=== PATIENT | female | born 1930 | race Caucasian/White ===

== ENCOUNTER 2016-04-09 10:14 | Day surgery (SDC) | payer MEDICARE, BC ==
[2016-04-09] VITALS (15 sets, daily range): BP systolic 130–233; BP diastolic 59–117; PULSE 58–77; TEMP 98.4
[~2016-04-09] VITALS: Ht 166.4 cm; Wt 81.0 kg
[~2016-04-09 10:14] MED LIST: ARIMIDEX1 MG PO; LOPRESSOR 225 MG/TAB PO; PRINIVIL20 MG PO; ZOCOR 40MG40 MG PO
[2016-04-09 10:57] LABS: HEMATOCRIT 40.3 % (37.0-47.0); HEMOGLOBIN 12.7 g/dl (12.5-16.0); MEAN CELL VOLUME 87 fl (80.0-100.0); MEAN CORPUSCULAR HEMOGLOBIN 28 pg (27.0-31.0); MEAN CORPUSCULAR HGB CONC 32 g/dl (33.0-37.0); MEAN PLATELET VOLUME 9.9 fl (7.4-10.4); PLATELET COUNT 193 K/mm3 (130-400); RED BLOOD COUNT 4.61 M/mm3 (4.10-5.30); WHITE BLOOD COUNT 5.4 K/mm3 (4.8-10.8)
[2016-04-09 10:59] LABS: PROTHROMBIN TIME 11.2 SECONDS (9.7-12.8)
[2016-04-09 11:11] LABS: CALCIUM 9.7 mg/dL (8.4-10.2); CREATININE, serum 1.1 mg/dL (0.52-1.25); POTASSIUM 3.5 mmol/L (3.4-5.0)
[2016-04-09] MEDS ORDERED: VITAMIN D32000 I1 PO (11:29)
[2016-04-09] MEDS ORDERED: CALTRATE 600 +1 TAB PO (11:30)
[2016-04-09] MEDS ORDERED: MULTIVITAMIN SEN PO (11:30)
[2016-04-09] MEDS ORDERED: ASPI325T6 PO (11:30)
[2016-04-09] MEDS ORDERED: FISH OIL1000 MG PO (11:31)
[2016-04-09] MEDS ORDERED: GINGER500 MG PO (11:31)
[2016-04-09] MEDS ORDERED: MAGNESIUM250 M1 PO (11:33)
[2016-04-09] MEDS ORDERED: THEANINE PO (11:33)
[2016-04-09] MEDS ORDERED: MELATONIN3 MG PO (11:33)
[2016-04-09] MEDS ORDERED: ASPIRIN E.C. 8181 MG PO (15:09)
[2016-04-09] MEDS ORDERED: CEPHALEXIN500 M1 PO (15:20)
== END 2016-04-09 20:07 | disposition home or self-care (01) ==
LOC: COL.RAD 10:14
PROVIDERS: Internal Medicine Interventional Cardiology
DX: I49.5 Sick sinus syndrome (principal); R55 Syncope and collapse; I10 Essential (primary) hypertension; I44.1 Atrioventricular block, second degree
CPT/HCPCS: C1785; C1894; C1898; J0360; J0690; J1644; J1940; J2250; J3010; J7030

== ENCOUNTER → 2016-05-04 | Outpatient (CLI) | payer MEDICARE, BC ==
[~2016-05-04] MED LIST changes: +ASPI325T6 PO; +ASPIRIN E.C. 8181 MG PO; +CALTRATE 600 +1 TAB PO; +CEPHALEXIN500 M1 PO; +FISH OIL1000 MG PO; +GINGER500 MG PO; +MAGNESIUM250 M1 PO; +MELATONIN3 MG PO; +MULTIVITAMIN SEN PO; +THEANINE PO; +VITAMIN D32000 I1 PO
== END ==
LOC: COL.VAS 08:32
DX: C50.412 Malignant neoplasm of upper-outer quadrant of left female breast (principal)

== ENCOUNTER → 2016-07-05 | Outpatient (CLI) | payer MEDICARE, BC | LOC: MC.RAD 09:12 | DX: Z12.31 Encounter for screening mammogram for malignant neoplasm of breast (principal); Z85.3 Personal history of malignant neoplasm of breast; Z90.12 Acquired absence of left breast and nipple | CPT/HCPCS: G0202 ==